=== PATIENT | female | born 1955 | race Caucasian/White ===

== ENCOUNTER → 2016-05-11 | Outpatient (CLI) | payer OTHER ==
[~2016-05-11] MED LIST: AUGMENTIN 875875 MG PO; CARBATROL300 MG PO; CYCLOBENZAPRINE10 MG PO; DAYPRO600 M1 PO; IBU800 MG PO; KLONOPIN1 M1 PO; LYRICA300 MG PO; NORCO 5-325 TA1 EACH PO; PREDNISONE10 MG PO; PREDNISONE20 M1 PO; ROBAXIN750 MG PO; SYMBICORT1 AE1 PO; TESSALON PERLE100 M1 PO; TOPAMAX200 MG PO
[2016-05-11 07:17] LABS: BASO % 0.3 % (0.0-1.0); EOS # 0.2 10*3/uL (0.0-0.4); EOS % 2.5 % (1.0-4.0); HEMATOCRIT 37.8 % (37.0-47.0); HEMOGLOBIN 12.4 g/dl (12.0-16.0); LYMPH # 3.6 10*3/uL (1.3-4.4); LYMPH % 39.3 % (27.0-41.0); MEAN CELL VOLUME 98.7 fl (81.0-99.0); MEAN CORPUSCULAR HGB 32.4 pg (27.0-31.0); MEAN CORPUSCULAR HGB CONC 32.8 g/dl (33.0-37.0); MEAN PLATELET VOLUME 10.1 fl (9.6-12.3); MONO # 0.7 10*3/uL (0.1-1.0); MONO % 7.7 % (3.0-9.0); NEUT # 4.6 10*3/uL (2.3-7.9); NEUT % 49.9 % (47.0-73.0); PLATELET COUNT AUTOMATED 287 10*3/uL (130-400); RED BLOOD COUNT 3.83 10*6/uL (4.10-5.10); RED CELL DISTRI WIDTH 13.6 % (0-14.5); WHITE BLOOD COUNT 9.1 10*3/uL (4.8-10.8)
[2016-05-11 07:33] LABS: ALBUMIN 3.6 gm/dl (3.1-4.5); ALKALINE PHOSPHATASE 95 U/L (45-117); BILIRUBIN, TOTAL 0.3 mg/dl (0.2-1.0); BUN 11 mg/dl (7-24); CARBON DIOXIDE 23 mmol/L (21-32); CHLORIDE 113 mmol/L (98-107); CHOLESTEROL 203 mg/dL (<200); EST GLOM FILT AFRICAN AMERICAN > 60 ml/min; GLUCOSE 90 mg/dL (65-99); HDL CHOLESTEROL 80 mg/dl (40-60); LDL CHOLESTEROL 111 mg/dL (9-159); POTASSIUM 3.8 mmol/L (3.5-5.1); SGOT/AST 16 IU/L (3-35); SGPT/ALT 15 U/L (12-78); SODIUM 144 mmol/L (136-145); TOTAL PROTEIN 7.3 gm/dL (6.4-8.2); TRIGLYCERIDES 61 mg/dl (<150); VLDL CHOLESTEROL 12 mg/dL (6-40)
== END | disposition home or self-care (01) ==
LOC: LAB 06:49
PROVIDERS: Nurse Practitioner Family
DX: J44.9 Chronic obstructive pulmonary disease, unspecified (principal); M85.88 Other specified disorders of bone density and structure, other site; R53.83 Other fatigue

== ENCOUNTER 2016-10-10 11:58 | Emergency (ER) | payer OTHER ==
[~2016-10-10] VITALS: Ht 162.5 cm; Wt 46.7 kg
[2016-10-10 12:45] LABS: BASO % 0.5 % (0.0-1.0); EOS # 0.1 10*3/uL (0.0-0.4); EOS % 1.7 % (1.0-4.0); HEMATOCRIT 36.1 % (37.0-47.0); HEMOGLOBIN 12.2 g/dl (12.0-16.0); LYMPH # 2.4 10*3/uL (1.3-4.4); LYMPH % 30.2 % (27.0-41.0); MEAN CELL VOLUME 96.3 fl (81.0-99.0); MEAN CORPUSCULAR HGB 32.5 pg (27.0-31.0); MEAN CORPUSCULAR HGB CONC 33.8 g/dl (33.0-37.0); MEAN PLATELET VOLUME 9.6 fl (9.6-12.3); MONO # 0.8 10*3/uL (0.1-1.0); MONO % 10.1 % (3.0-9.0); NEUT # 4.5 10*3/uL (2.3-7.9); NEUT % 57.1 % (47.0-73.0); PLATELET COUNT AUTOMATED 317 10*3/uL (130-400); RED BLOOD COUNT 3.75 10*6/uL (4.10-5.10); RED CELL DISTRI WIDTH 13.1 % (0-14.5); WHITE BLOOD COUNT 7.8 10*3/uL (4.8-10.8)
[2016-10-10 12:45] LABS: BILIRUBIN NEGATIVE (NEGATIVE); BLOOD NEGATIVE (NEGATIVE); CLARITY CLOUDY (CLEAR); COLOR YELLOW (YELLOW); GLUCOSE NEGATIVE (NEGATIVE); KETONE NEGATIVE (NEGATIVE); LEUKO ESTERASE 1+ (NEGATIVE); NITRITE NEGATIVE (NEGATIVE); PH 7.5 (5.0-9.0); UROBILINOGEN 0.2 E.U./dl (0.2-1.0)
[2016-10-10 12:51] LABS: BACTERIA 2+
[2016-10-10 13:31] LABS: ALBUMIN 3.4 gm/dl (3.1-4.5); ALKALINE PHOSPHATASE 125 U/L (45-117); BUN 9 mg/dl (7-24); CHLORIDE 100 mmol/L (98-107); CREATININE 0.59 mg/dL (0.55-1.02); SGOT/AST 17 IU/L (3-35); SGPT/ALT 20 U/L (12-78); SODIUM 131 mmol/L (136-145); TOTAL PROTEIN 7.1 gm/dL (6.4-8.2)
[2016-10-10] MEDS ORDERED: LEVOFLOXACIN500 MG PO (15:50)
== END 2016-10-10 16:15 | disposition home or self-care (01) ==
LOC: ED 11:58
PROVIDERS: Emergency Medicine
DX: N39.0 Urinary tract infection, site not specified (principal); J44.9 Chronic obstructive pulmonary disease, unspecified; Z88.8 Allergy status to other drugs, medicaments and biological substances; Z79.899 Other long term (current) drug therapy

== ENCOUNTER → 2017-03-19 | Outpatient (CLI) | payer OTHER ==
[~2017-03-19] MED LIST changes: +LEVOFLOXACIN500 MG PO
== END | disposition home or self-care (01) ==
LOC: RAD 10:47
DX: M81.8 Other osteoporosis without current pathological fracture (principal)

== ENCOUNTER → 2017-05-12 | Outpatient (CLI) | payer OTHER | END | disposition home or self-care (01) | LOC: MAMMO 04-28 10:00 | DX: Z12.31 Encounter for screening mammogram for malignant neoplasm of breast (principal) ==

== ENCOUNTER → 2017-05-19 | Outpatient (CLI) | payer OTHER | END | disposition home or self-care (01) | LOC: MAMMO 10:24 | DX: N60.02 Solitary cyst of left breast (principal); R92.8 Other abnormal and inconclusive findings on diagnostic imaging of breast ==

== ENCOUNTER → 2017-11-30 | Outpatient (CLI) | payer OTHER | END | disposition home or self-care (01) | LOC: RAD 14:19 | DX: J43.9 Emphysema, unspecified (principal) ==

== ENCOUNTER → 2018-01-19 | Outpatient (CLI) | payer OTHER | END | disposition home or self-care (01) | LOC: RAD 14:22 | DX: M25.561 Pain in right knee (principal); M25.562 Pain in left knee; M25.462 Effusion, left knee; M25.461 Effusion, right knee ==

== ENCOUNTER 2018-05-14 16:55 | Inpatient (IN) | payer OTHER ==
[~2018-05-14] VITALS: Ht 160 cm; Wt 44.7 kg
--- NOTE | ~2018-05-14 | EKG ---
[place], [place] ELECTROCARDIOGRAM REPORT NAME: ISMAEL CARLIN UNIT #: [id number] ROOM: 415 DOCTOR: RAFIA DRAFT REPORT BIRTHDATE: [birth year] [facility] Test Date: 2018-05-14 Test Time: 17:28:04 Pat Name: ISMAEL CARLIN Department: Room: 415 Gender: F Statistical Technician: : 1955 Requested By: KYLIE WHALEY PA-C Order Number: [id number] Reading MD: Juan Carlos Gurrola MD Measurements Intervals [place] Rate: 84 P: 76 GA: 152 QRS: 17 QRSD: 89 T: 40 QT: 349 QTc: 413 Interpretive Statements Sinus rhythm Prominent P waves, nondiagnostic Electronically Signed On 05-15-2018 17:38:27 PDT by Juan Carlos Gurrola MD CM:EKGRPT:ELECTROCARDIOGRAM REPORT [id number] KYLIE WHALEY PA-C EPIPHARELI DRAFT REPORT KYLIE WHALEY PA-C
--- NOTE | ~2018-05-14 | CON ---
[place], [place] REPORT OF CONSULTATION NAME: ISMAEL CARLIN [facility] #: [id number] UNIT #: [id number] ROOM: 415 DOCTOR: DMITRIY ALVARADO MD BIRTHDATE: [birth year] DOS: 05/15/2018 PULMONARY CONSULTATION, EVALUATION AND MANAGEMENT CONSULTATION REQUESTED BY: Hospitalist services. REASON FOR CONSULTATION: For assessment of the abnormal respiratory symptoms. HISTORY OF PRESENT ILLNESS: A 62-year-old white female patient who has been admitted to the hospital under the care of the hospitalist service on 05/14/2018. This is a 62-year-old white female patient who has been admitted to the hospital that was reporting with increased symptoms of shortness of breath for the past 5 days. The symptoms have been noted gradually worsening. There was no wheezing associated with that. The patient does have symptoms of cough, which described to be nonproductive. The patient denies symptoms of fever or chills. She has been admitted to the hospital for further care. She stated reduction in respiratory symptom since hospitalization in the last 24 hours. The symptoms does not resolve completely. PAST MEDICAL HISTORY: Noted with: 1. History of COPD: 2. Epilepsy. 3. Low BMI. SURGICAL HISTORY: Noted none significant. SOCIAL HISTORY: The patient was noted with the use of tobacco use, which has been known from teenager a pack of cigarettes per day and currently smoking 6 cigarettes per day. She is , has 2 children and lives at home. PAST SURGICAL HISTORY: Noted as none. FAMILY HISTORY: The patient's father for unknown medical illnesses. Mother with complications related to the metastatic breast cancer. MEDICATIONS: Home were listed as Symbicort, Carbatrol, Klonopin, Winner, ibuprofen, Levaquin and Lyrica. CURRENT MEDICATIONS: Administered were use of Topamax, Lovenox for DVT prophylaxis, carbamazepine, Mucinex, Solu-Medrol 40 mg b.i.d., albuterol sulfate with nebulizer, Rocephin, Zithromax, and some other p.r.n. medications including use of Klonopin. DRUG ALLERGIES: NOTED ALLERGY TO THE BACTRIM CAUSING DIPLOPIA. PHYSICAL EXAMINATION: GENERAL: This is a 62-year-old white female has been noted comfortable. Lying in the bed. Height of 5 feet 3 inches, weight of 98 pounds, BMI 17.3. VITAL SIGNS: Normal temperature, respiratory rate 18, heart rate of 71-78. The blood pressure 137/57-129/62. Pulse oxygen saturation recorded at rest on room [place], [place] REPORT OF CONSULTATION NAME: ISMAEL CARLIN UNIT #: [id number] ROOM: 415 DOCTOR: JUDY STONER MD,DMITRIY BIRTHDATE: [birth year] air is 98% saturation. HEENT: Examination shows head was atraumatic. Eyes nonicterus. NECK: Supple. CARDIOVASCULAR: S1, S2 audible. LUNGS: General reduction in breath sounds with expiratory wheezing, no crackles. ABDOMEN: Soft, nontender. Bowel sounds present. No tenderness. EXTREMITIES: Without any acute edema, clubbing or cyanosis. MUSCULOSKELETAL: Noted nonfocal. VISIBLE SKIN: No lesions or rashes. CENTRAL NERVOUS SYSTEM: Cranial nerves 2-12 intact. No focal deficit. LABORATORY DATA: CMP that was done on 05/14/2018 shows glucose 146. Normal BUN and creatinine, CO2 was 18. Anion gap was normal. Troponin normal. CBC that was done yesterday, WBC count 4.3, hemoglobin and hematocrit normal, platelet count was normal. BMP that was done, BUN 22, creatinine was normal. Potassium 3.4 with a pCO2 still noted as 17. CBC, WBC count was normal today. Hemoglobin and hematocrit normal, platelet count normal. Two-view chest x-ray that was done yesterday reviewed with changes in hyperinflation and severe COPD was noted. There were no acute visible pulmonary infiltration or other abnormalities. IMPRESSION: 1. The patient with acute exacerbation of chronic obstructive pulmonary disease, acute tracheobronchitis. 2. Chronic nicotine dependence with emphysema as well. 3. Metabolic acidosis, rule out renal tubular acidosis, medication induced and other in the differentials. PLAN OF MANAGEMENT: Continuation of the bronchodilators, oxygen supplementation. Continue current antibiotics. Abstinence tobacco use was encouraged. Use of nicotine placement patches with history of use of tobacco products as well and wishes to do so and care for the current nicotine withdrawal. A 40 mg of nicotine replacement patches will be ordered. Additional treatment changes will be made with the progression of the illness. Supportive care. DMITRIY KIM MD CM:CONSTR:REPORT OF CONSULTATION 1327 05/26/18 0816 interface
--- NOTE | ~2018-05-14 | PR ---
[place], [place] PROGRESS NOTE NAME: ISMAEL CARLIN [facility] #: [id number] UNIT #: [id number] ROOM: 415 DOCTOR: JUDY STONER MD,DMITRIY BIRTHDATE: [birth year] DOS: 05/16/2018 SUBJECTIVE: The patient was noted comfortable at this time, doing well with reduction of respiratory symptoms. She reported there were no symptoms of fever or chills, coughing or any sputum expectoration. The patient has a CT scan of chest done yesterday ordered by the primary care attending. OBJECTIVE: VITAL SIGNS: Normal temperature, respiratory rate 18, heart rate 84, blood pressure 135/61. Pulse oxygen saturation recorded as 97% at rest on room air. HEENT: Head was atraumatic. Eyes nonicterus. NECK: Supple. CARDIOVASCULAR: S1, S2 audible. LUNGS: The patient without any wheeze or crackles. ABDOMEN: Soft, nontender, bowel sounds present. EXTREMITIES: No acute change. IMPRESSION: The patient with resolving acute tracheobronchitis. There was no evidence of pneumonia. The CT scan of the chest that was completed yesterday. Pneumonia is excluded. Acute exacerbation of chronic obstructive pulmonary disease as well. PLAN OF MANAGEMENT: From the pulmonary standpoint consider home discharge. Oral tapering prednisone and the antibiotics. Bronchodilators. Abstinence of tobacco use was encouraged. DMITRIY KIM MD CM:PNTRANS [id number] DMITRIY STONER MD 05/16/18 1507 interface
[2018-05-14 16:59] VITALS: BP 114/63
[2018-05-14 18:01] LABS: HEMATOCRIT 39.8 % (37.0-47.0); HEMOGLOBIN 13.5 g/dl (12.0-16.0); MEAN CELL VOLUME 96.1 fl (81.0-99.0); MEAN CORPUSCULAR HGB 32.6 pg (27.0-31.0); MEAN CORPUSCULAR HGB CONC 33.9 g/dl (33.0-37.0); MEAN PLATELET VOLUME 10.3 fl (9.6-12.3); PLATELET COUNT AUTOMATED 308 10*3/uL (130-400); RED BLOOD COUNT 4.14 10*6/uL (4.10-5.10); RED CELL DISTRI WIDTH 13.2 % (0-14.5); WHITE BLOOD COUNT 4.3 10*3/uL (4.8-10.8)
[2018-05-14 18:02] LABS: BILIRUBIN NEGATIVE (NEGATIVE); BLOOD NEGATIVE (NEGATIVE); CLARITY SL CLOUDY (CLEAR); COLOR YELLOW (YELLOW); GLUCOSE NEGATIVE (NEGATIVE); KETONE TRACE (NEGATIVE); LEUKO ESTERASE NEGATIVE (NEGATIVE); NITRITE NEGATIVE (NEGATIVE); UROBILINOGEN 0.2 E.U./dl (0.2-1.0)
[2018-05-14 18:11] LABS: BACTERIA 1+; WBC 0-2 wbc/hpf (0-5)
[2018-05-14 18:24] LABS: ALBUMIN 3.4 gm/dl (3.1-4.5); ALKALINE PHOSPHATASE 130 U/L (45-117); BUN 24 mg/dl (7-24); CHLORIDE 110 mmol/L (98-107); CREATININE 0.85 mg/dL (0.55-1.02); POTASSIUM 3.6 mmol/L (3.5-5.1); SGOT/AST 22 IU/L (3-35); SGPT/ALT 24 U/L (12-78); SODIUM 138 mmol/L (136-145); TOTAL PROTEIN 7.4 gm/dL (6.4-8.2)
[2018-05-14 18:25] LABS: TROPONIN I < 0.015 ng/ml (<0.045)
[2018-05-14 18:35] LABS: ATYPICAL LYMPHS 4 % (0-0); PLATELET SUFFICIENCY NORMAL (NORMAL); TOTAL CELLS COUNTED 100 #CELLS
[2018-05-14 18:43] VITALS: BP 118/50; BP 118/60
[2018-05-14 21:10] VITALS: BP 157/63
[2018-05-14 21:20] VITALS: BP 157/63
[2018-05-14] MEDS ORDERED: BREO ELLIPTA 11 EACH INH (21:49)
[2018-05-14] MEDS ORDERED: VIMPAT50 MG PO ×2 (21:50)
[2018-05-14] MEDS ORDERED: TOPAMAX200 MG PO ×2 (23:18→23:19)
[2018-05-14] MEDS ORDERED: KLONOPIN0.5 MG PO (23:21)
[2018-05-15] VITALS: BP 129/62
[2018-05-15 05:41] LABS: BUN 22 mg/dl (7-24); CHLORIDE 111 mmol/L (98-107); CREATININE 0.49 mg/dL (0.55-1.02); PHOSPHOROUS 3.2 mg/dL (2.5-4.9); POTASSIUM 3.4 mmol/L (3.5-5.1); SODIUM 140 mmol/L (136-145)
[2018-05-15 05:47] LABS: BASO % 0.2 % (0.0-1.0); HEMATOCRIT 36.2 % (37.0-47.0); HEMOGLOBIN 12.1 g/dl (12.0-16.0); LYMPH # 1.8 10*3/uL (1.3-4.4); LYMPH % 34.9 % (27.0-41.0); MEAN CELL VOLUME 96.3 fl (81.0-99.0); MEAN CORPUSCULAR HGB 32.2 pg (27.0-31.0); MEAN CORPUSCULAR HGB CONC 33.4 g/dl (33.0-37.0); MEAN PLATELET VOLUME 10.6 fl (9.6-12.3); MONO # 0.3 10*3/uL (0.1-1.0); MONO % 5.4 % (3.0-9.0); NEUT % 59.1 % (47.0-73.0); PLATELET COUNT AUTOMATED 281 10*3/uL (130-400); RED BLOOD COUNT 3.76 10*6/uL (4.10-5.10); RED CELL DISTRI WIDTH 13.2 % (0-14.5)
[2018-05-15 08:00] VITALS: BP 113/57
[2018-05-15 12:00] VITALS: BP 111/58
[2018-05-15 16:00] VITALS: BP 124/74
[2018-05-15 20:00] VITALS: BP 136/58
[2018-05-16] VITALS: BP 108/58
[2018-05-16 06:59] LABS: BASO % 0.1 % (0.0-1.0); HEMATOCRIT 32.5 % (37.0-47.0); LYMPH # 3.1 10*3/uL (1.3-4.4); LYMPH % 42.2 % (27.0-41.0); MEAN CELL VOLUME 96.4 fl (81.0-99.0); MEAN CORPUSCULAR HGB 32.6 pg (27.0-31.0); MEAN CORPUSCULAR HGB CONC 33.8 g/dl (33.0-37.0); MEAN PLATELET VOLUME 10.6 fl (9.6-12.3); MONO # 0.5 10*3/uL (0.1-1.0); MONO % 6.3 % (3.0-9.0); NEUT # 3.7 10*3/uL (2.3-7.9); NEUT % 51.1 % (47.0-73.0); PLATELET COUNT AUTOMATED 297 10*3/uL (130-400); RED BLOOD COUNT 3.37 10*6/uL (4.10-5.10); RED CELL DISTRI WIDTH 13.3 % (0-14.5); WHITE BLOOD COUNT 7.3 10*3/uL (4.8-10.8)
[2018-05-16 07:21] LABS: BUN 15 mg/dl (7-24); CHLORIDE 113 mmol/L (98-107); CREATININE 0.49 mg/dL (0.55-1.02); PHOSPHOROUS 3.5 mg/dL (2.5-4.9); POTASSIUM 4.1 mmol/L (3.5-5.1); SODIUM 142 mmol/L (136-145)
[2018-05-16 08:00] VITALS: BP 135/61
[2018-05-16] MEDS ORDERED: LEVAQUIN750 M1 PO (10:34)
[2018-05-16] MEDS ORDERED: NICODERM CQ1 EAC1 T (10:34)
[2018-05-16] MEDS ORDERED: PREDNISONE10 MG PO (10:34)
== END 2018-05-16 13:15 | disposition home or self-care (01) | DRG 190 ==
LOC: ED 16:55 → 4E 18:51 → EDHOLD 18:51 → 4E 20:49
PROVIDERS: Physician Assistant; Student in an Organized Health Care Education/Training Program; ADMIT Internal Medicine
DX: J43.9 Emphysema, unspecified (principal); J18.9 Pneumonia, unspecified organism; E87.2 Acidosis; E44.1 Mild protein-calorie malnutrition; Z68.1 Body mass index [BMI] 19.9 or less, adult; E87.8 Other disorders of electrolyte and fluid balance, not elsewhere classified; R73.9 Hyperglycemia, unspecified; G40.909 Epilepsy, unspecified, not intractable, without status epilepticus; J20.9 Acute bronchitis, unspecified; G25.0 Essential tremor; F17.210 Nicotine dependence, cigarettes, uncomplicated; G62.9 Polyneuropathy, unspecified; A49.8 Other bacterial infections of unspecified site; Z71.6 Tobacco abuse counseling; Z88.8 Allergy status to other drugs, medicaments and biological substances; Z80.3 Family history of malignant neoplasm of breast; Z80.1 Family history of malignant neoplasm of trachea, bronchus and lung; Z79.899 Other long term (current) drug therapy; Z88.1 Allergy status to other antibiotic agents

== ENCOUNTER → 2018-10-31 | Outpatient (CLI) | payer OTHER ==
[~2018-10-31] MED LIST changes: +BREO ELLIPTA 11 EACH INH; +KLONOPIN0.5 MG PO; +LEVAQUIN750 M1 PO; +NICODERM CQ1 EAC1 T; +VIMPAT50 MG PO
== END | disposition home or self-care (01) ==
LOC: ORTHO 05:17
DX: S92.001A Unspecified fracture of right calcaneus, initial encounter for closed fracture (principal); M85.871 Other specified disorders of bone density and structure, right ankle and foot; M19.071 Primary osteoarthritis, right ankle and foot; M85.89 Other specified disorders of bone density and structure, multiple sites; X58.XXXA Exposure to other specified factors, initial encounter; Y93.89 Activity, other specified; Y92.89 Other specified places as the place of occurrence of the external cause; Y99.8 Other external cause status

== ENCOUNTER → 2018-11-28 | Outpatient (CLI) | payer OTHER | END | disposition home or self-care (01) | LOC: ORTHO 00:51 | DX: S92.011D Displaced fracture of body of right calcaneus, subsequent encounter for fracture with routine healing (principal); X58.XXXD Exposure to other specified factors, subsequent encounter ==

== ENCOUNTER → 2018-12-30 | Outpatient (CLI) | payer OTHER | END | disposition home or self-care (01) | LOC: RAD 00:24 | DX: S92.011D Displaced fracture of body of right calcaneus, subsequent encounter for fracture with routine healing (principal); X58.XXXD Exposure to other specified factors, subsequent encounter ==

== ENCOUNTER → 2019-09-07 | Outpatient (CLI) | payer OTHER ==
[2019-09-07 12:58] LABS: IRON 99 ug/dL (50-170); TOTAL IRON BINDING CAPACITY 208 ug/dl (250-450)
[2019-09-07 13:49] LABS: PTH INTACT 57.4 pg/mL (18.5-88.0)
== END | disposition home or self-care (01) ==
LOC: LAB 12:29
PROVIDERS: Nurse Practitioner Family
DX: E55.9 Vitamin D deficiency, unspecified (principal); D64.9 Anemia, unspecified; Z79.899 Other long term (current) drug therapy

== ENCOUNTER → 2019-10-17 | Outpatient (CLI) | payer OTHER | END | disposition home or self-care (01) | LOC: COVID19 12:01 | PROVIDERS: ATTEND Nurse Practitioner Family | DX: R05 Cough (principal); H92.02 Otalgia, left ear; R59.9 Enlarged lymph nodes, unspecified; Z20.828 Contact with and (suspected) exposure to other viral communicable diseases ==

== ENCOUNTER → 2019-11-15 | Outpatient (CLI) | payer OTHER | END | disposition home or self-care (01) | LOC: RAD 16:59 | PROVIDERS: ATTEND Nurse Practitioner Family | DX: Z20.828 Contact with and (suspected) exposure to other viral communicable diseases (principal); R05 Cough; R09.81 Nasal congestion; R06.2 Wheezing; R53.83 Other fatigue ==

== ENCOUNTER → 2019-11-16 | Outpatient (CLI) | payer OTHER | END | disposition home or self-care (01) | LOC: COVID19 09:29 | PROVIDERS: ATTEND Nurse Practitioner Family | DX: R05 Cough (principal); R06.2 Wheezing; R09.81 Nasal congestion; R53.83 Other fatigue; Z20.828 Contact with and (suspected) exposure to other viral communicable diseases ==

== ENCOUNTER → 2019-12-19 | Outpatient (CLI) | payer OTHER | END | disposition home or self-care (01) | LOC: CT 12-15 14:00 | PROVIDERS: ATTEND Nurse Practitioner Family | DX: J43.9 Emphysema, unspecified (principal); J18.1 Lobar pneumonia, unspecified organism; Z87.891 Personal history of nicotine dependence ==

== ENCOUNTER → 2020-04-05 | Outpatient (CLI) | payer OTHER ==
[2020-04-05 09:03] LABS: BASO % 0.5 % (0.0-1.0); EOS # 0.1 10*3/uL (0.0-0.4); EOS % 1.7 % (1.0-4.0); HEMATOCRIT 35.8 % (37.0-47.0); LYMPH # 2.5 10*3/uL (1.3-4.4); LYMPH % 38.9 % (27.0-41.0); MEAN CELL VOLUME 97.8 fl (81.0-99.0); MEAN CORPUSCULAR HGB 32.2 pg (27.0-31.0); MEAN PLATELET VOLUME 9.6 fl (9.6-12.3); MONO # 0.7 10*3/uL (0.1-1.0); MONO % 10.3 % (3.0-9.0); NEUT % 48.3 % (47.0-73.0); PLATELET COUNT AUTOMATED 303 10*3/uL (130-400); RED BLOOD COUNT 3.66 10*6/uL (4.10-5.10); WHITE BLOOD COUNT 6.3 10*3/uL (4.8-10.8)
[2020-04-05 09:31] LABS: ALBUMIN 3.6 gm/dl (3.1-4.5); ALKALINE PHOSPHATASE 93 U/L (45-117); BUN 10 mg/dl (7-24); CHLORIDE 106 mmol/L (98-107); CHOLESTEROL 224 mg/dL (<200); CREATININE 0.61 mg/dL (0.55-1.02); HDL CHOLESTEROL 98 mg/dl (40-60); IRON 66 ug/dL (50-170); LDL CHOLESTEROL 112 mg/dL (9-159); POTASSIUM 3.9 mmol/L (3.5-5.1); SGOT/AST 18 IU/L (3-35); SGPT/ALT 23 U/L (12-78); SODIUM 134 mmol/L (136-145); TOTAL IRON BINDING CAPACITY 241 ug/dl (250-450); TOTAL PROTEIN 7.3 gm/dL (6.4-8.2); TRIGLYCERIDES 71 mg/dl (<150); VLDL CHOLESTEROL 14 mg/dL (6-40)
== END | disposition home or self-care (01) ==
LOC: LAB 08:33
PROVIDERS: ATTEND Nurse Practitioner Family
DX: E55.9 Vitamin D deficiency, unspecified (principal); D64.9 Anemia, unspecified; F17.210 Nicotine dependence, cigarettes, uncomplicated

== ENCOUNTER → 2020-04-12 | Outpatient (CLI) | payer OTHER | END | disposition home or self-care (01) | LOC: RAD 09:51 | PROVIDERS: ATTEND Nurse Practitioner Family | DX: M25.541 Pain in joints of right hand (principal); M65.341 Trigger finger, right ring finger; M65.321 Trigger finger, right index finger ==

== ENCOUNTER → 2020-07-04 | Day surgery (SDC) | payer OTHER ==
[2020-07-01 12:56] LABS: BUN 11 mg/dl (7-24); CHLORIDE 103 mmol/L (98-107); CREATININE 0.64 mg/dL (0.55-1.02); POTASSIUM 3.9 mmol/L (3.5-5.1); SODIUM 131 mmol/L (136-145)
[~2020-07-04] VITALS: Ht 162.5 cm; Wt 49.9 kg
[~2020-07-04] MED LIST changes: +DULERA 200 MCG8.8 GM INH; +ZYRTEC10 M3 PO
[2020-07-04 07:02] VITALS: BP 124/53
[2020-07-04 08:00] VITALS: BP 101/44
[2020-07-04 08:15] VITALS: BP 95/47
[2020-07-04 08:30] VITALS: BP 102/47
== END | disposition home or self-care (01) ==
LOC: SDC 07-01 11:00
PROVIDERS: ATTEND Orthopaedic Surgery
DX: M65.341 Trigger finger, right ring finger (principal); M65.841 Other synovitis and tenosynovitis, right hand; G40.909 Epilepsy, unspecified, not intractable, without status epilepticus; J44.9 Chronic obstructive pulmonary disease, unspecified; K21.9 Gastro-esophageal reflux disease without esophagitis; F41.9 Anxiety disorder, unspecified; Z88.8 Allergy status to other drugs, medicaments and biological substances; Z79.899 Other long term (current) drug therapy; Z20.822 Contact with and (suspected) exposure to COVID-19

== ENCOUNTER → 2021-02-13 | Outpatient (CLI) | payer OTHER | END | disposition home or self-care (01) | LOC: RAD 14:45 | PROVIDERS: ATTEND Nurse Practitioner Family | DX: M19.041 Primary osteoarthritis, right hand (principal); M19.031 Primary osteoarthritis, right wrist ==

== ENCOUNTER → 2021-10-01 | Outpatient (CLI) | payer OTHER | END | disposition home or self-care (01) | LOC: RAD 16:36 | PROVIDERS: ATTEND Nurse Practitioner Family | DX: U07.1 COVID-19 (principal); R05.9 Cough, unspecified; D72.9 Disorder of white blood cells, unspecified ==

== ENCOUNTER → 2021-10-20 | Outpatient (CLI) | payer OTHER | END | disposition home or self-care (01) | LOC: RAD 09:00 | PROVIDERS: ATTEND Nurse Practitioner Family | DX: M81.0 Age-related osteoporosis without current pathological fracture (principal) ==

== ENCOUNTER 2021-12-21 14:18 | Emergency (ER) | payer OTHER, MEDICAID ==
[~2021-12-21] VITALS: Ht 160 cm; Wt 49.9 kg
[2021-12-21] MEDS ORDERED: ZITHROMAX250 MG PO (14:33)
[2021-12-21] MEDS ORDERED: VIBRA-TAB100 MG PO ×2 (14:35→15:01)
== END 2021-12-21 14:45 | disposition home or self-care (01) ==
LOC: ED 14:18
DX: J32.8 Other chronic sinusitis (principal); Z88.8 Allergy status to other drugs, medicaments and biological substances; Z79.899 Other long term (current) drug therapy; Z87.891 Personal history of nicotine dependence

== ENCOUNTER 2021-12-27 18:11 | Emergency (ER) | payer OTHER, MEDICAID ==
[~2021-12-27 18:11] MED LIST changes: +VIBRA-TAB100 MG PO; +ZITHROMAX250 MG PO
[2021-12-27 18:42] LABS: BASO % 0.3 % (0.0-1.0); EOS # 0.1 10*3/uL (0.0-0.4); EOS % 0.5 % (1.0-4.0); HEMATOCRIT 38.9 % (37.0-47.0); LYMPH # 2.4 10*3/uL (1.3-4.4); LYMPH % 21.8 % (27.0-41.0); MEAN CELL VOLUME 97.5 fl (81.0-99.0); MEAN CORPUSCULAR HGB 32.3 pg (27.0-31.0); MEAN CORPUSCULAR HGB CONC 33.2 g/dl (33.0-37.0); MEAN PLATELET VOLUME 10.5 fl (9.6-12.3); MONO # 0.8 10*3/uL (0.1-1.0); MONO % 6.9 % (3.0-9.0); NEUT # 7.8 10*3/uL (2.3-7.9); NEUT % 70.1 % (47.0-73.0); PLATELET COUNT AUTOMATED 311 10*3/uL (130-400); RED BLOOD COUNT 3.99 10*6/uL (4.10-5.10); RED CELL DISTRI WIDTH 13.2 % (0-14.5); WHITE BLOOD COUNT 11.1 10*3/uL (4.8-10.8)
[2021-12-27 18:57] LABS: ACT PARTIAL THROMBO TIME 32.5 SECONDS (20.0-32.1); INTERNATIONAL NORM RATIO 1.1 (2.0-3.5)
[2021-12-27 18:59] LABS: ALKALINE PHOSPHATASE 109 U/L (45-117); BUN 30 mg/dl (7-24); CHLORIDE 111 mmol/L (98-107); CREATININE 0.94 mg/dL (0.55-1.02); POTASSIUM 3.8 mmol/L (3.5-5.1); SGPT/ALT 24 U/L (12-78); SODIUM 138 mmol/L (136-145); TOTAL PROTEIN 7.5 gm/dL (6.4-8.2)
[2021-12-27 22:20] LABS: BILIRUBIN Negative (Negative); BLOOD Negative (Negative); CLARITY Clear (Clear); COLOR Yellow (Yellow); GLUCOSE Negative (Negative); KETONE Negative (Negative); LEUKO ESTERASE Trace (Negative); NITRITE Negative (Negative); PH 5.5 (4.5-8.0); SPECIFIC GRAVITY >= 1.030 (1.001-1.030)
== END 2021-12-27 22:26 | disposition home or self-care (01) ==
LOC: ED 18:11
PROVIDERS: Family Medicine; Nurse Practitioner Family
DX: B34.9 Viral infection, unspecified (principal); Z20.822 Contact with and (suspected) exposure to COVID-19; Z88.8 Allergy status to other drugs, medicaments and biological substances; Z79.2 Long term (current) use of antibiotics; Z79.899 Other long term (current) drug therapy; Z87.891 Personal history of nicotine dependence

== ENCOUNTER → 2022-03-20 | Outpatient (CLI) | payer OTHER, MEDICAID | END | disposition home or self-care (01) | LOC: MRI 00:15 | PROVIDERS: ATTEND Nurse Practitioner Family | DX: I67.89 Other cerebrovascular disease (principal); R41.3 Other amnesia ==

== ENCOUNTER → 2022-07-20 | Outpatient (CLI) | payer OTHER | END | disposition home or self-care (01) | LOC: ORTHO 02:24 | PROVIDERS: ATTEND Orthopaedic Surgery | DX: M19.012 Primary osteoarthritis, left shoulder (principal); M25.512 Pain in left shoulder ==

== ENCOUNTER 2022-12-16 13:48 | Emergency (ER) | payer OTHER ==
[~2022-12-16] VITALS: Wt 45.4 kg
[2022-12-16] MEDS ORDERED: LACOSAMIDE50 M1 PO (15:43)
[2022-12-16] MEDS ORDERED: TOPIRAMATE200 M2 PO (15:44)
== END 2022-12-16 15:41 | disposition home or self-care (01) ==
LOC: ED 13:48
DX: S80.02XA Contusion of left knee, initial encounter (principal); J44.9 Chronic obstructive pulmonary disease, unspecified; K21.9 Gastro-esophageal reflux disease without esophagitis; F41.9 Anxiety disorder, unspecified; Z88.8 Allergy status to other drugs, medicaments and biological substances; Z98.890 Other specified postprocedural states; Z98.51 Tubal ligation status; F17.200 Nicotine dependence, unspecified, uncomplicated; W01.0XXA Fall on same level from slipping, tripping and stumbling without subsequent striking against object, initial encounter; Y93.89 Activity, other specified; Y92.410 Unspecified street and highway as the place of occurrence of the external cause; Y99.8 Other external cause status

== ENCOUNTER → 2022-12-23 | Outpatient (CLI) | payer OTHER ==
[~2022-12-23] MED LIST changes: +LACOSAMIDE50 M1 PO; +TOPIRAMATE200 M2 PO
== END | disposition home or self-care (01) ==
LOC: RAD 10:59
PROVIDERS: ATTEND Nurse Practitioner Family
DX: M79.662 Pain in left lower leg (principal); M25.562 Pain in left knee

== ENCOUNTER → 2023-06-14 | Outpatient (CLI) | payer OTHER ==
[~2023-06-14] MED LIST changes: +LEVOFLOXACIN750 M2 PO; +MUCUS RELIEF600 MG PO; +PREDNISONE5 M1 PO; +PREGABALIN75 MG PO; +PROVENTIL HFA6.7 GM INH; +TAMIFLU30 MG PO; +TOPAMAX100 M1 PO; +TOPAMAX15 M1 PO
== END | disposition home or self-care (01) ==
LOC: RAD 11:39
PROVIDERS: ATTEND Nurse Practitioner Family
DX: M47.22 Other spondylosis with radiculopathy, cervical region (principal); M50.10 Cervical disc disorder with radiculopathy, unspecified cervical region; M48.02 Spinal stenosis, cervical region

== ENCOUNTER → 2024-10-23 | Outpatient (CLI) | payer OTHER ==
[2024-10-23 11:07] LABS: BASO # 0.0 10*3/uL (0.0-0.1); BASO % 0.6 % (0.0-1.0); EOS # 0.1 10*3/uL (0.0-0.4); EOS % 1.7 % (1.0-4.0); MEAN CELL VOLUME 98.7 fl (81.0-99.0); MEAN CORPUSCULAR HGB 32.5 pg (27.0-31.0); MEAN PLATELET VOLUME 9.9 fl (9.6-12.3); MONO # 0.5 10*3/uL (0.1-1.0); MONO % 9.1 % (3.0-9.0); NEUT # 2.7 10*3/uL (2.3-7.9); NEUT % 50.5 % (47.0-73.0); NUCLEATED RED BLOOD CELL 0.0 % (0.0-0.0); NUCLEATED RED BLOOD CELL 0.0 10*3/uL (0.0-0.0); PLATELET COUNT AUTOMATED 306 10*3/uL (130-400); RED CELL DISTRI WIDTH 13.6 % (0-14.5)
[2024-10-23 11:33] LABS: BUN 12 mg/dl (9-23); CARBAMAZEPINE (TEGRETOL) TOTAL 9.8 ug/ml (4-12); LDL CHOLESTEROL 135 mg/dL (9-159); SGPT/ALT 15 U/L (5-49)
[2024-10-24 15:07] LABS: TOPAMAX (TOPIRAMATE) 6.1 ug/mL (2.0-25.0)
== END ==
LOC: LAB 10:31
PROVIDERS: ATTEND Nurse Practitioner Family
DX: J44.9 Chronic obstructive pulmonary disease, unspecified (principal); M81.0 Age-related osteoporosis without current pathological fracture; G40.909 Epilepsy, unspecified, not intractable, without status epilepticus; G62.9 Polyneuropathy, unspecified; E78.2 Mixed hyperlipidemia; Z76.89 Persons encountering health services in other specified circumstances; Z13.1 Encounter for screening for diabetes mellitus

== ENCOUNTER → 2024-11-01 | Outpatient (CLI) | payer OTHER | END | disposition home or self-care (01) | LOC: RAD 00:54 | PROVIDERS: ATTEND Nurse Practitioner Family | DX: M81.0 Age-related osteoporosis without current pathological fracture (principal); Z76.89 Persons encountering health services in other specified circumstances ==